=== PATIENT | male | born 1960 | race Caucasian/White ===

== ENCOUNTER 2017-03-30 14:23 | Emergency (ER) | payer OTHER ==
[~2017-03-30] VITALS: Ht 182.9 cm; Wt 95.3 kg
[2017-03-30] MEDS ORDERED: AUGMENTIN 875875 MG PO (16:35)
[2017-03-30] MEDS ORDERED: TRAMADOL 50 MG50 MG PO (16:37)
[2017-03-30 17:11] VITALS: BP 128/94
[2017-03-30] MEDS ORDERED: K-DUR 20 MEQ T20 MEQ PO (17:12)
[2017-03-30] MEDS ORDERED: METFORMIN HCL500 MG PO (17:12)
[2017-03-30] MEDS ORDERED: CENTRUM SILVER1 EAC4 PO (17:12)
== END 2017-03-30 17:14 | disposition home or self-care (01) ==
LOC: ER 14:23
DX: S61.011A Laceration without foreign body of right thumb without damage to nail, initial encounter (principal); E11.9 Type 2 diabetes mellitus without complications; I10 Essential (primary) hypertension; F17.210 Nicotine dependence, cigarettes, uncomplicated; Z88.5 Allergy status to narcotic agent; W26.8XXA Contact with other sharp object(s), not elsewhere classified, initial encounter; Y93.89 Activity, other specified; Y92.89 Other specified places as the place of occurrence of the external cause; Y99.8 Other external cause status